=== PATIENT | female | born 1970 | race Caucasian/White ===

== ENCOUNTER 2018-02-15 14:53 | Day surgery (SDC) | payer OTHER, SELFPAY ==
[2018-02-15 15:27] VITALS: BP 134/89; PULSE 83; RESP 16; TEMP 36.6; O2SAT 100; BMI 35.9
--- NOTE | 2018-02-15 16:16 | PM.PREOP ---
Pre-operative Note Interval Note Pre-op Check: History & Physical Reviewed by Physician, Exam Performed and History & Physical exam performed today
[2018-02-15] MEDS: LACTATED RINGERS 1,000 ML 42 ML IV (16:35)
[2018-02-15] MEDS: CLINDAMYCIN 900 MG/50 ML PIGGYBACK 50 MG IV (16:54)
[2018-02-15] MEDS: BUPIVACAINE 0.25% (PF) 30 ML VIAL INJ (17:24)
[2018-02-15 17:47] VITALS: BP 143/97; PULSE 87; RESP 16; TEMP 36.6; O2SAT 99
[2018-02-15] MEDS: fentaNYL 100 MCG/2 ML INJ 50 MCG IV ×2 (17:52→18:00)
[2018-02-15 17:55] VITALS: BP 123/77; PULSE 71; RESP 17; O2SAT 100
--- NOTE | 2018-02-15 17:58 | P.OP_ITS ---
Operative Date/Time/Diagnoses - Date of procedure: 02/15/18 Time of procedure: 16:42 Pre-op diagnosis: right ring finger partial amputation Post-op diagnosis: same Procedure & Clinicians Procedure: 1. Right ring finger irrigation and debridement of skin, muscle and bone 2. Right ring finger nail debridement Same procedure as scheduled: Yes Indications: Ms. Prajapati is a 47 yo F with partial amputation of her right ring finger while slicing on a mandolin slicer. She was seen in the [facility] ER and had significant cauterization and was discharged home. She was instructed to follow up with her PCP. She was referred by PCP to see orthopaedics three days post injury. Her finger was found to be well perfused in the clinic. There was small amount of serosangunous fluid after the finger was compressed. The surface of the wound was completely cauterized black making assessment of the wound difficult. She was scheduled for formal irrigation and debridement in the OR. Surgeon: Marielle Cantrell Click Yes if Unassisted: Yes Anesthesia Type: Sedation and Peripheral nerve block Operative Notes Closure Type: primary Specimen(s): none sent Estimated Blood Loss (mL): 2 Blood products transfused: none Procedure in detail: After patient was seen in the preoperative area, informed consent was obtained and placed in chart. Surgical site was marked. Patient was taken to the operative room placed in the supine position on the operating table. Tourniquet was placed on patient upper arm. Patient's right hand and arm was then prepped from the fingertips all way to the tourniquet. Time-out was performed at this time. Digital block was performed using 0.25% Marcaine to the right ring finger. A tourniquet was placed on the base of the right ring finger using a Yousif drain. IV sedation was given by Anesthesia. Patient's right ring finger wound was then explored. Upon exploration and expressing the tip of the right ring finger 1 cc of purulent material was able to be expressed from the wound. Culture was taken from the purulent material. The surface of the wound was debrided by removing the charred soft tissue from previous cauterization using the Adson. There was exposed bone within the charred material. There was also infected appearing soft tissue underneath the charred material. A small rongeur was used to remove the unhealthy appearing tissue including skin muscle part of the nail bed as well as bone from the distal phalanx. After the debridement the wound was reassessed and then irrigated with sterile normal saline. The tip of the finger was debrided until healthy tissue was appearing on all surfaces. The fingernail along with part of the nail bed was debrided in order to expose additional healthy tissue using pair of scissors. Then the wound again was irrigated with sterile normal saline after the debridement of the nail was completed. At this time the wound can be approximated and the bony ends could be covered with soft tissue without exposing it to air. 4-0 chromic gut suture was used to close the subcutaneous layer of the right ring finger and the tip of the finger was approximated using 3-0 nylon suture in interrupted fashion. All surface of the finger was healthy-appearing without signs of infection. Tourniquet was removed at this time. There was no significant bleeding with only mild oozing from the tip of the finger after the debridement.The wound was covered with Xeroform and 4 x 4 and a sterile Anastacio for dressing. A finger splint was placed to the right ring finger for protection of the soft tissue. Patient was woken up from the IV sedation and transferred recovery room stay stable condition. There were no complications. Patient will be discharged to home. Complications: none Condition: stable Disposition: same day surgery Plan for aftercare: Discharge to home
[2018-02-15 18:07] VITALS: BP 124/79; PULSE 78; RESP 15; TEMP 36.7; O2SAT 100
[2018-02-15 18:23] VITALS: BP 132/79; PULSE 77; RESP 16; TEMP 36.8; O2SAT 100
--- NOTE | 2018-02-15 18:28 | SUR.PHASEII ---
PT TOLERATED PO JUICE, DENIED NEED FOR ADDITIONAL PAIN MEDCI
--- NOTE | 2018-02-15 18:29 | SUR.PHASEII ---
PT TOLERATED PO JUICE, DENIED NEED FOR ADDITIONAL PAIN MEDICINE AT THIS TIME. DRESSING REMAINS CLEAN AND DRY, D/C INSTRUCTIONS REVIEWED WITH PT AND FRIENDS WITH VERBALIZED UNDERSTANDING. PT EXPRESSED DESIRE AND WILLINGNESS TO GO HOME. VSS , PT D/C HOME.
== END 2018-02-15 18:30 ==
LOC: OR 14:57
PROVIDERS: Visit Provider Orthopaedic Surgery Orthopaedic Surgery of the Spine
PROC: (CPT 26951; principal; 2018-02-15 16:45)
PROC: (CPT 26951; 2018-02-15 16:45)
DX: S68.129A Partial traumatic metacarpophalangeal amputation of unspecified finger, initial encounter (principal); M86.9 Osteomyelitis, unspecified; W27.4XXA Contact with kitchen utensil, initial encounter
CPT/HCPCS: 26951; 87070; 87075; 87205; J2250; J2704; J3010

== ENCOUNTER → 2018-03-21 09:50 | Outpatient (CLI) | payer OTHER, SELFPAY ==
--- NOTE | 2018-03-21 | OV.WND_ITS ---
Progress Note Details Patient Name: Luisa Prajapati Patient Number: [id number] PatientPatientDate: 03/21/2018 Clinician: Susi Sahu Clinician Cosigner: Nahomi Bird Physician / Epic Ambulatory Analysts: Monty Burnham SUBJECTIVE Chief Complaint This information was obtained from the patient Surgical wound on right 4th finger. Allergies penicillin (Severity: Severe, Reaction: throat swells) HPI This information was obtained from the patient 03/21/18. Seen by Dr. Burnham. The patient's new to our clinic and presents with a right 4th finger trauma wound that occurred while using her mandolin slicer at home about 6 weeks ago. The wound subsequently became infected, was treated with antibiotics, and was debrided by Dr. Cantrell. She does not report pain or drainage from the site today and has been keeping covered and clean. Family History This information was obtained from the patient Unknown History - Maternal Grandparents, Paternal Grandparents, Diabetes - Mother, Heart Disease - Mother, Kidney Disease - Mother, Stroke - Mother Social History This information was obtained from the patient Current every day smoker - Started age 25, 1/2 pack per day, Alcohol Use - 1/day , Caffeine Use - 1/day, Children - 2, Lives in - Private home, Marital Status - Single, Occupation - [employer], Tobacco Use - Every day smoker Surgical History This information was obtained from the patient Patient has a surgical history of: Cholecystectomy Bone spurs removed (bilateral heels) Tubal ligation Tubal ligation reversal Complaints and Symptoms This information was obtained from the patient Patient complains of: General Notes: I have reviewed and concur with the Review of Systems and Past Family Social History documents completed by the clinician, I have reviewed and concur with the Wound Assessment document completed by the clinician Constitutional Symptoms (General Health): Chills, Fever Integumentary (Hair/Skin/Nails): Open Sore Prior Wound History: Bleeding, Drainage, Pain Patient denies complaints or symptoms related to: Hematologic/Lymphatic: Bleeding / Clotting Disorders, Bleeding Tendency Neurological: Loss of Protective Sensation Psychiatric: Memory Loss General Notes: Up to date. OBJECTIVE Constitutional BP elevated; Afebrile; Alert and in no distress. Well developed. Alert. Clean appearing.. Height/Length: 70 in (177.8 cm), Weight: 250.4 lbs (113.82 kgs), BMI: 35.9, Temperature: 98.4 ?F (36.89 ?C), Pulse: 70 bpm, Respiratory Rate: 18 breaths/min, Blood Pressure: 135/91 mmHg, Pulse Oximetry: 100 %. Ears, Nose, Mouth, and Throat: No clinically significant hearing loss on informal examination. Respiratory: No respiratory distress. Even respirations and without use of accessory muscles.. Integumentary (Hair, Skin) Refer to appropriate clinician wound documentation for this visitl right 4th finger wound appears nearly healed and without appreciable exposed bone; no signs of active infection. Wound #1 Right Finger - fourth is a chronic Eschar covered Surgical Wound and has received a status of Not Healed. Initial wound encounter measurements are 0.1cm length x 0.1cm width x 0.1cm depth, with an area of 0.01 sq cm and a volume of 0.001 cubic cm. No tunneling has been noted. No sinus tract has been noted. No undermining has been noted. There was no drainage noted. The patient reports a wound pain of level 0/10. The wound margin is attached. Wound bed has Yes epithelialization, Yes eschar, No slough, No granulation. The periwound skin texture is normal. The periwound skin moisture is normal. The periwound skin color is normal. The temperature of the periwound skin is WNL. Periwound skin does not exhibit signs or symptoms of infection. Local Pulse is Palpable. Neurological: Cranial nerves grossly intact with symmetric function normal by informal observation.. ASSESSMENT Active Problems ICD-10 (Encounter Diagnosis) S61.204D - Unspecified open wound of right ring finger without damage to nail, subsequent encounter PROCEDURES Wound #1 Wound #1 (Surgical Wound) is located on the right finger - fourth. A non- selective mechanical debridement with a total area debrided of 0.01 sq cm was performed by Monty Burnham MD. Non-viable tissue was removed.The procedure was tolerated well with a pain level of 2 throughout and a pain level of 0 following the procedure. Post Debridement Measurements: 0.1cm length x 0.1cm width x 0.1cm depth; with an area of 0.01 sq cm and a volume of 0.001 cubic cm; General Notes: Dried exudate removed. PLAN Wound Orders: Wound #1 Right Finger - fourth Anesthetic Topical Xylocaine to wound bed. - Lidocaine in clinic only. Cleanser Cleanse Wound: - Distilled water and gauze at home. May Shower. - Cover with glove or equivalent in shower. Dressings Cover and secure with: - Foam cut, secured with tape. May use a bandaid or other dressings to cover at home. Change Dressing: - About every other day. Additional Orders: Follow-Up Appointments Return Appointment: - - One week. Other information: If you develop fever, chills, increased pain, drainage, redness or swelling please call our office. If after hours, respond to the ER. Should you experience any significant changes in your wound(s) or have any questions regarding your home care instructions please contact the wound center @ [phone]. If after hours, contact your primary care physician or go to the hospital emergency room. Scribing Attestation I attest, as the nurse, that I scribed these orders for the physician. I've reviewed the clinician's documentation and agree with the evaluation and plan as written. The right 4th finger wound appears nearly healed however if it continues to drain we'll take a wound culture, restart oral antibiotics, and consider imaging to evaluate for possible acute osteomyelitis. Electronic Signature(s) Signed By: Date: Monty Burnham MD 03/23/2018 08:46:21 Entered By: Monty Burnham on 03/21/2018 14:14:59
== END ==
PROVIDERS: Visit Provider Internal Medicine
DX: S61.204D Unspecified open wound of right ring finger without damage to nail, subsequent encounter (principal)
CPT/HCPCS: 99213

== ENCOUNTER → 2018-03-28 08:48 | Outpatient (CLI) | payer OTHER, SELFPAY | PROVIDERS: PCP Physician Assistant Medical; Referring Provider Orthopaedic Surgery Orthopaedic Surgery of the Spine; Visit Provider Internal Medicine | DX: Z48.817 Encounter for surgical aftercare following surgery on the skin and subcutaneous tissue (principal) | CPT/HCPCS: 99212 ==

== ENCOUNTER → 2022-11-17 12:19 | Outpatient (CLI) | payer OTHER, SELFPAY ==
--- NOTE | 2022-11-17 | DI.CT.S_ITS ---
PROCEDURE: CT CHEST ABD PEL W CON INDICATIONS: Uterine and cervical mass TECHNIQUE: After the administration of oral and intravenous contrast, axial sections acquired from the supraclavicular neck to the pubic symphysis. Coronal and sagittal reformats were performed. For radiation dose reduction, the following was used: automated exposure control, adjustment of mA and/or kV according to patient size. COMPARISON: None. FINDINGS: Image quality: Excellent. CHEST: Lower Neck: No enlarged lymph nodes. Thyroid: Unremarkable. Axillae: No enlarged lymph nodes. Chest Wall: Unremarkable. Lungs and Airways: No consolidation or suspicious nodules. Pleura: No pneumothorax or pleural effusions. Heart: Heart size is normal. No pericardial effusion. Thoracic Vessels: The aorta and pulmonary arteries demonstrate normal size. Mediastinum and Eunice: No enlarged lymph nodes. Esophagus: No wall thickening. No hiatal hernia. ABDOMEN: Liver: Multiple low-density cystic lesions are present within the liver. No abnormal enhancement. Gallbladder: Surgically absent. Biliary ducts: Unremarkable. Pancreas: Unremarkable. Spleen: Unremarkable. Adrenal Glands: Unremarkable. Kidneys and Ureters: Innumerable low-density cystic lesions are present throughout both kidneys. No abnormal enhancement. A nonobstructing 2 mm calculus is present within the left kidney. Stomach and Bowel: Stomach, small bowel loops, and colon are unremarkable. There is a small gas filled duodenal diverticulum. The appendix is thin walled and gas filled. Peritoneum: No abnormal intraperitoneal fluid. No free air. Ventral Wall: No hernia. Abdominal Nodes: No retroperitoneal or mesenteric adenopathy by size criteria. Vessels: Aorta and inferior vena cava are normal in size. PELVIS: Pelvic Organs: The uterus is markedly enlarged and has a heterogeneous appearance. There appears to be a large endometrial mass centrally. An enhancing mass is also present within the cervical region. Bladder: Unremarkable. Pelvic Nodes: No enlarged lymph nodes. Miscellaneous: No inguinal hernias are seen. Bones: Unremarkable. IMPRESSION: 1. Large uterine and cervical mass as above. 2. No findings to suggest distant metastatic disease. 3. Polycystic kidneys and liver. 4. Normal appendix. Dictated by: Jhoana Schwab M.D. on 11/17/2022 at 16:32 Approved by: Jhoana Schwba M.D. on 11/17/2022 at 16:40
== END ==
PROVIDERS: PCP Physician Assistant; Referring Provider Obstetrics & Gynecology; Visit Provider Obstetrics & Gynecology
DX: R19.00 Intra-abdominal and pelvic swelling, mass and lump, unspecified site (principal); N85.8 Other specified noninflammatory disorders of uterus; N88.8 Other specified noninflammatory disorders of cervix uteri; N28.1 Cyst of kidney, acquired; K76.89 Other specified diseases of liver; K57.10 Diverticulosis of small intestine without perforation or abscess without bleeding; N20.0 Calculus of kidney; Z90.49 Acquired absence of other specified parts of digestive tract
CPT/HCPCS: 71260; 74177; Q9967